=== PATIENT | female | born 1935 | race Caucasian/White ===

== ENCOUNTER 2023-06-17 12:40 | Emergency (ER) | payer MEDICARE, OTHER ==
[~2023-06-17] VITALS: Ht 157.5 cm; Wt 58.5 kg
[2023-06-17] MEDS ORDERED: ZESTRIL20 MG PO (13:53)
[2023-06-17] MEDS ORDERED: HYDROCODON-ACE1 EA10 PO (15:51)
[2023-06-17 16:09] VITALS: BP 146/61
== END 2023-06-17 16:26 | disposition home or self-care (01) ==
LOC: ED 12:40
DX: S33.5XXA Sprain of ligaments of lumbar spine, initial encounter (principal); M25.551 Pain in right hip; W19.XXXA Unspecified fall, initial encounter; I10 Essential (primary) hypertension; Z91.041 Radiographic dye allergy status; Z79.899 Other long term (current) drug therapy
CPT/HCPCS: 72131; 72192; 99283-25; A9270

== ENCOUNTER 2025-03-01 18:17 | Emergency (ER) | payer MEDICARE, OTHER | END 2025-03-01 21:02 | disposition home or self-care (01) | LOC: ED 18:17 | DX: K21.9 Gastro-esophageal reflux disease without esophagitis (principal); I10 Essential (primary) hypertension; Z91.041 Radiographic dye allergy status; Z79.899 Other long term (current) drug therapy ==